=== PATIENT | female | born 1950 | race Caucasian/White ===

== ENCOUNTER 2025-04-18 10:00 | Outpatient (RCR) | payer MEDICARE, OTHER, SELFPAY | END 2025-04-26 16:16 | disposition home or self-care (01) | PROVIDERS: PCP Family Medicine; Visit Provider Family Medicine | DX: M25.551 Pain in right hip (principal); M25.561 Pain in right knee; M25.562 Pain in left knee; Z51.89 Encounter for other specified aftercare | CPT/HCPCS: 97110; 97112; 97161 ==

== ENCOUNTER 2025-09-17 09:40 | Emergency (ER) | payer MEDICARE, OTHER, SELFPAY ==
--- OUTSIDE RECORDS SUMMARY | 2025-09-17 09:42 | XMS_ITS | Clinical Summary ---
Author Organization [facility] Address [address] [place] [id number] Care Team Providers Care Commanding Officer Traffic Division Name Role Phone Last Garcia MD Unavailable Kisha Wynn MD Primary Care Provider Allergies Active Allergy Reactions Criticality Noted Date Comments Amoxicillin-Pot Clavulanate Diarrhea 07/21/20 12 Meperidine Hives 01/19/2007 Esomeprazole GI Upset 01/19/2007 Sulfa (Sulfonamide Antibiotics) Rash 12/26 Medications VITAMIN D 2,000 UNIT CAP once daily 0 07/13/20 09 Active polyethylene glycoL (MIRALAX) 17 gram/dose powder Take 17 g by mouth. 0 08/20/20 18 Active docusate (STOOL SOFTENER) 100 mg capsule Take 100 mg by mouth 2 times daily if needed for Constipation. 0 08/20/20 18 Active calcium carbonate CHEWABLE (TUMS E-X) 750 mg chewable tablet Take 1 tablet by mouth 3 times daily with meals. 0 08/24/20 20 Active hydrOXYchloroQUINE (PLAQUENIL) 200 mg tablet Take 2 Tablets (400 mg) by mouth once daily. Take one tablet once daily 0 09/02/20 22 Active triamcinolone 0.1 % creamIndications:H and dermatitis Apply topically to affected area(s) two times daily. 28.4 g 02/26/20 25 Active Additional Information Patient not taking.Reported on 09/09/2025 fluticasone (50 mcg per actuation) nasal solution (FLONASE)Indicatio ns:Eustachian tube dysfunction, left INSTILL 2 SPRAYS INTO BOTH NOSTRILS ONCE DAILY 16 g 07/05/20 25 Active pantoprazole (PROTONIX) 40 mg delayed-release tabletIndications: Lyn's esophagus without dysplasia Take 1 Tablet (40 mg) by mouth once daily before a meal. 93 Tablet 3 09/09/20 25 Active famotidine (PEPCID) 20 mg tabletIndications: Lyn's esophagus without dysplasia Take 1 Tablet (20 mg) by mouth once daily if needed for GI Upset or Heartburn. 93 Tablet 3 09/09/20 25 Active ezetimibe (ZETIA) 10 mg tabletIndications: Mixed hyperlipidemia Take 1 Tablet (10 mg) by mouth once daily. 93 Tablet 3 09/09/20 25 Active Carboxymethylcellu lose Sodium (THERA TEARS) 0.25 % drop Place into the eye(s). 1 Bottle 0 03/17/20 14 025 Discontin ued(*Med complete/ Regimen complete/ Level of care change) famotidine (PEPCID) 20 mg tabletIndications: Lyn's esophagus without dysplasia Take 1 Tablet (20 mg) by mouth once daily if needed for GI Upset or Heartburn. 100 Tablet 3 09/06/20 24 025 Discontin ued(Reord er (E-cancel not sent)) ezetimibe (ZETIA) 10 mg tabletIndications: Mixed hyperlipidemia Take 1 Tablet (10 mg) by mouth once daily. 100 Tablet 3 09/06/20 24 025 Discontin ued(Reord er (E-cancel not sent)) albuterol HFA (PRO-AIR; VENTOLIN; PROVENTIL) 90 mcg/actuation inhalerIndications :Chronic cough Inhale 1-2 Puffs by mouth every 4 hours if needed for Shortness Of Breath or Wheezing. 1 Each 3 09/06/20 24 025 Discontin ued(*Med complete/ Regimen complete/ Level of care change) pantoprazole (PROTONIX) 40 mg delayed-release tabletIndications: Lyn's esophagus without dysplasia Take 1 Tablet (40 mg) by mouth once daily before a meal. 90 Tablet 2 12/03/19 25 025 Discontin ued(Reord er (E-cancel not sent)) Active Problems Problem Noted Date Diagnosed Date Chronic constipation 09/27/2019 Osteopenia 08/18/2017 History of impaired fasting glucose 08/18/2017 Overview (08/18/2017): 3484-0187 Normal sugars for the last few years Diverticulitis 03/20/2014 Overview (03/20/2014): 09/2012 - ER with Abdominal pain, Slightly elevated WBC, CT sugestive of diverticulitis - Improved with Cipro and flagyl 07/2013 - Nausea, bloody diarrhea - treated empirically for diverticulitis over the phone 12/2013 - seen in clinic with mild LLQ tenderness, treated for diverticulitis based on labs, no CT or CBC. C diff colitis 1 month later Diverticulosis of colon (without mention of hemo rrhage) 12/24/2012 Overview (12/26/2022): Colonoscopy 11/2012 diverticulosis repeat in 10 years Incolonoscopy 12/2022 CT colonography shows tortuous colon with diverticuli, repeat CT scan every 5 years Hypertrophy of breast 12/23/2011 Irritable bowel syndrome 07/18/2011 Sjogren's syndrome 09/27/2010 Healthcare maintenance 07/11/2008 Overview (08/14/2015): LMP menopause Last Pap 2013 Result WNL Last Mammo yearky Last Colonoscopy 11/2012 - follow up in 10 years Last DEXA 2011 Last Td 04/15/08 Lyn's esophagus 05/13/2008 Overview (08/23/2022): EGD 07/2011 normal , repeat EGD in 5 years EGD 09/2013 normal, no follow up EGD needed give negative biopsies and normal esophageal appearance, Continue proton pump inhibitor or H2 eric as needed for gastroesophogeal reflux disease. No obvious Lyn's tissue EGD 07/2022 reactive gastropathy, no Lyn's esophagus, no follow-up EGD needed Mixed hyperlipidemia 05/13/2008 Adjustment disorder with depressed mood 11/12/19 08 Resolved Problems Problem Noted Date Diagnosed Date Resolved Date Prediabetes 07/13/2009 08/18/2017 Unspecified hypothyroidism 05/13/2008 1 Impaired fasting glucose 05/13/2008 Encounters Date Type Department Care Team Description 09/13/2025 Refill [facility] [address] [facility] [place] [address] Kisha Wynn MD Refill Request (Pantoprazole) 09/09/2025 10:20 AM SUPERVISOR FELLING [employer]CK[employer] Office Visit [facility] [address] [place] [address] Kisha Wynn MD Medicare ANNUAL (subsequent) Visit (annual) 09/09/2025 Travel 09/06/2025 Travel 09/02/2025 9:20 AM [employer]PERVISOR [employer] Ancillary Procedure [facility] [address] [place] [address] 09/02/2025 Travel 08/28/2025 Travel 08/01/2025 Refill [facility] [address] [place] [address] Kisha Wynn MD Refill Request (Pantoprazole) 07/28/2025 Refill [facility] [address] [place] [address] Kisha Wynn MD Refill Request (Pantoprazole) 06/30/2025 Refill [facility] [address] [place] [address] Kisha Wynn MD Refill Request (Fluticasone (50 Mcg Per Actuation) Nasal) from Last 3 Months Immunizations Immunization Administration Dates Next Due AMB INFLUENZA IIV3 (AGE 65+ YRS) PF (Flu Clinic Only) 07/30/2017 AMB Influenza, IIV3 (Age >=3 years)(Flu Clinic Only) 07/15/2013 AMB Influenza, IIV4 PF (=>6 mos Flulaval,Fluzone Fluarix)(Flu Clinic Only) 08/01/2014 Amb Influenza, Inactivated A IIV4 (Age 65+ Years) Preserv Free 07/20/2020 COVID-19 VACCINE SPIKEVAX (M ODERNA 50MCG/0.5ML) 12YO+ PFS 08/14/2023 COVID-19 vaccine (Moderna 100mcg/0.5mL) PF, MDV 02/12/2022 HepA-HepB (Twinrix) 01/16/2007, 6,07/21/2006,08/24 Influenza A (H1N1), Inactiva brittny (Age >=3 Years) 10/17/2009 Influenza, High-dose Inactivated 025,07/13/2024,08/15/2016,08/14 Influenza, IIV3 (Age >=3 years) 07/21/20 12,07/18/2011,07/17/2010,07/13,08/23/2008,09/01/2007 Influenza, IIV4 10/17/2009 Influenza, Inactivated AIIV4 (Age 65+ Years) Preserv Free 08/05/2023,07/22/2022,08/29/2021 Influenza, Inactivated IIV3 (Age 65+ Years) Preserv Free 08/23/2019,08/20/2018 Pneumococcal Poly,23-Valent (Pneumovax) 08/15/2016 Pneumococcal conj 13-Valent (Prevnar 13) 08/14/2015 RSV, Recombinant ADJ Reconst ituted (Arexvy 120MCG/0.5mL) 11/11/2023 Td (Age >=7 Years) 10/27/1997 Tdap 05/22/2018,04/15/2008 Zoster (Shingrix-RZV, recombinant) 06/02/2019, Zoster (Zostavax-ZVL, live) 10/02/2010 Family History Medical History Relation Name Comments Heart Disease Father [place] age 59 Heart Disease Mother aortic aneurys m Cancer-breast No Family History Cancer-ovarian No Family History Relation Name Status Comments Father Mother Social History Tobacco Use Types Packs/Day Years Used Date Smoking Tobacco: Former Cigarettes Q uit: 09/01/1984 Smokeless Tobacco: Never Tobacco Cessation:Counseling Given: Yes Comments:quit x23 yrs, 09/02 Alcohol Use Standard Drinks/Week Comments Yes 0 (1 standard drink = 0.6 oz pur e alcohol) 3-4 times a week PHQ-2 Answer Date Recorded PHQ-2 TOTAL SCORE 0 09/09/2025 Social Connections Answer Date Recorded Do you often feel lonely or isolated from those around you? 0 09/09/2025 Alcohol Use Answer Date Recorded How often do you have a drink containing alcohol ? 3 09/09/2025 How many drinks containing a lcohol do you have on a typical day when you are drinking? 0 09/09/2025 How often do you have five or more drinks on one occasion? 0 09/09/2025 Financial Resource Strain Answer Date R ecorded Difficulty of Paying Living Expenses 3 09/09/2025 Difficulty of Paying Living Expenses Not on file 09/09/2025 Food Insecurity Answer Date Recorded Do you worry your food will run out before you are able to buy more? 1 09/09/2025 Transportation Needs Answer Date Record ed Does lack of transportation keep you from medica l appointments? 1 09/09/2025 Does lack of transportation keep you from work, meetings or getting things that you need? 1 09/09/2025 Housing Stability Answer Date Recorded What is your housing situation today? 1 09/09/2025 Utilities Answer Date Recorded Do you have trouble paying f or utilities (for example, heat, electricity, water, phone)? 1 09/09/2025 Comments No Sex and Gender Information Value Date Recorded Sex Assigned at Not on file Legal Sex Female 6:18 AM SUPERVIS[employer] Gender Identity Not on file Sexual Orientation Not on file Obstetrics History Para Term AB IAB SAB Ectopic Multiple Livin g Live Births 2 2 2 0 0 0 0 0 2 2 Date Outcome GA Total Labor Labor/2nd/3rd Weight Sex Type Anes PTL Nereyda A1 A5 Name Clin Term Living Term Living Last Filed Vital Signs Vital Sign Reading Time Taken Comments Blood Pressure 124/72 09/09/2025 10:21 AM SUPERVIS[employer] Pulse 84 09/09/2025 10:21 AM SUPERVISOR [employer]ING [employer] Temperature 36.6 C (97.9 F) 09/09/2025 10:21 AM SUPERVISOR [employer]ING Respiratory Rate 14 08/21/2023 1:19 PM CDT Oxygen Saturation 99% 09/09/2025 10:21 AM SUPERVISOR [employer]ING [employer]ING Inhaled Oxygen Concentration - - Weight 70 kg (154 lb 6.4 oz) 09/09/2025 10:21 AM SUPERVISOR [employer] Height 152.4 cm (5') 09/09/2025 10:21 AM SUPERVISOR [employer] Body Mass Index 30.15 09/09/2025 10:21 AM SUPERVISOR [employer] Plan of Treatment Health Maintenance Due Date Last Done Comments BMI (ht and wt on same day) for age 18+ 09/09/2026 09/09/2025, 09/06/2024, 09/03/2023, Additional history exists Depression screening for age 12+ 09/09/2026 09/09/2025, 09/06/2024, 09/03/2023, Additional history exists Medicare Wellness for age 65+ 09/10/2026, 09/06/2024, 09/03/2023, Additional history exists CT Colonography for age 45-75 12/26/2027 12/25/2022 Tetanus booster 05/22/2028 05/22/2018, 03/28, 10/27/1997 Lipids for age 45-75 09/09/2030 09/09/2025, 09/06/2024, 09/03/2023, Additional history exists Hepatitis B series for 19+ Completed 01/16, 08/18/2006, 07/21/2006, Additional history exists Pneumococcal series for age 50+ Completed 6, 08/14/2015 Hepatitis C screening for ag e 18-79 Completed 08/18/2017 Zoster (shingles) series for age 50+ Completed 06/02/2019, 02/02/2019, 10/02/2010 DEXA/DXA scan for age 65+ Completed 2021, 09/13/2019, 08/22/2015, Additional history exists RSV vaccine for adults or Completed 11/11/2023 Influenza Vaccine Completed 08/10/2025, , 08/05/2023, Additional history exists Procedures Procedure Name Priority Date/Time Associated Diagnosis Comments GLUCOSE, RANDOM Routine 09/09/2025 11:38 AM SUPERVISOR [employer] Diabetes mellitus screening LIPID PANEL W REFLEX MEASURED LDL Routine 09/09/2025 11:38 AM SUPERVISOR [employer] Mixed hyperlipidemia XR MAMMO COLTON BILAT SCREEN Routine 09/02/2025 9:30 AM SUPERVISOR [employer] Breast cancer screening by mammogram CT ABDOMEN PELVIS COLONOGRAPHY DIAGNOSTIC W Today 12/25/2022 1:28 PM [employer]OR [employer] Screening for colon cancer Procedure and treatment not carried out for other reasons XR DXA BONE DENSITY 2 SITES AXIAL Routine 09/30/2022 10:49 AM SUPERVISOR [employer]ING [employer]ING Osteopenia, unspecified location Other specified disorders of bone density and structure, multiple sites ANTI HCV Routine 08/18/2017 10:53 AM CDT Need for hepatitis C screening test from Last 3 Months or Most Recently Relevant to Health Maintenance Results * (ABNORMAL) LIPID PANEL W REFLEX MEASURED LDL (09/09/2025 11:38 AM SUPERVISOR [employer]ING [employer]ING) CHOLESTEROL, TOTAL 215(H) <200 mg/dL 09/10/2025 4:55 AM SUPERVISOR FELLING [employer]CKING [facility] TRIGLYCERIDES 60 <150 mg/dL 09/10/2025 4:55 AM SUPERVISOR FELLING [employer]ING [facility] HDL CHOLESTEROL 85 > OR = 50 mg/dL 09/10/2025 4:55 AM SUPERVISOR FELLING [employer]ING [facility] NON HDL CHOLESTEROL 130(H) <130 mg/dL (calc) 09/10/2025 4:55 AM SUPERVISOR FELLING [employer]ING [facility] Comment: For patients with diabetes plus 1 major ASCVD risk factor, treating to a non-HDL-C goal of <100 mg/dL (LDL-C of <70 mg/dL) is considered a therapeutic option. CHOL/HDLC RATIO 2.5 <5.0 (calc) 09/10/2025 4:55 AM SUPERVISOR FELLING [employer]CKING [facility] LDL-CHOLESTEROL 115(H) mg/dL (calc) 09/10/2025 4:55 AM SUPERVISOR FELLING [employer]ING [facility] Comment: Reference range: <100 Desirable range <100 mg/dL for primary prevention; <70 mg/dL for patients with CHD or diabetic patients with > or = 2 CHD risk factors. LDL-C is now calculated using the Harpreet calculation, which is a validated novel method providing better accuracy than the Friedewald equation in the estimation of LDL-C. Adonay EASLEY et al. GERONIMO. 2013;310(19): 7864-6016 (http://education.gDecide.[employer] Ultrasound/faq/TDI701) Blood BLOOD SPECIMEN / Unknown [facility] / Unknown 09/09/2025 11:38 AM SUPERVISOR FELLING [employer]CKING 09/09/2025 11:38 AM SUPERVISOR FELLING [employer]ING us Kisha Wynn MD CHEMISTRY Final Resul t Performing Organization Address [facility]/ZIP Co de Phone Number [employer] [address] [address], [place] [phone] * GLUCOSE, RANDOM (09/09/2025 11:38 AM SUPERVISOR FELLING BUCKING) GLUCOSE, RANDOM 92 <140 mg/dL 09/10/2025 4:55 AM SUPERVISOR FELLING [employer]CKING [facility] Blood BLOOD SPECIMEN / Unknown [facility] / Unknown 09/09/2025 11:38 AM SUPERVISOR FELLING [employer]ING 09/09/2025 11:38 AM SUPERVISOR FELLING BUCKING us Kisha Wynn MD CHEMISTRY Final Resul t Performing Organization Address [facility] Co de Phone Number [employer] [address] [address], [place] [phone] * XR MAMMO COLTON BILAT SCREEN (09/02/2025 9:30 AM SUPERVISOR FELLING [employer]ING) Anatomical Region Laterality Modality BREASTS, Breast Left, Breast Right Bilateral Mammography Impressions 09/02/2025 1:23 PM SUPERVISOR [employer]ING There is no radiographic evidence for malignancy. Recommend annual mammograms. MAMMOGRAM ASSESSMENT: ACR 1 Negative PATIENTS: You will also receive a letter with your examination results in an easy to read format. If you have questions about your results, please contact your referring provider. Narrative 09/02/2025 1:23 PM SUPERVISOR [employer]ING For Patients: As a result of the 21st Century Cures Act, medical imaging exams and procedure reports are released immediately into your electronic medical record. You may view this report before your referring provider. If you have questions, please contact your health care provider. XR MAMMO COLTON BILAT SCREEN [[id number]] CLINICAL HISTORY: This is an asymptomatic 75 y.o. patient. INDICATION FOR EXAM: Mammogram Screening. TECHNIQUE: CC and MLO views were obtained. This study was evaluated with the assistance of Computer-Aided Detection. Breast Tomosynthesis was used in interpretation. COMPARISON FILM: Yes 09/02/24 [facility] 09/01/23 [facility] FINDINGS: There are scattered areas of fibroglandular density. There are no dominant masses, suspicious micro calcifications or areas of architectural distortion. us Kisha Wynn MD MAMMO Final Resul t * CT ABDOMEN PELVIS COLONOGRAPHY DIAGNOSTIC W (12/25/2022 1:28 PM SUPERVISOR [employer]ING) Anatomical Region Laterality Modality Abdomen, Pelvis Computed Tomogra phy 12/25/2022 1:28 PM SUPER[employer]OR [employer]ING Impressions 12/26/2022 8:24 AM SUPERVISOR FELLING [employer]ING IMPRESSION: 1. Extremely tortuous and redundant colon. 2. Moderate diverticulosis. 3. Colon otherwise negative. 4. No significant extracolonic findings. Narrative 12/26/2022 8:24 AM SUPERVISOR [employer]LLING [employer]CKING EXAM: CT COLONOGRAPHY LOCATION: [facility] DATE/TIME: 12/25/2022 1:28 PM INDICATION: Incomplete colonoscopy due to tortuous redundant colon. COMPARISON: Colonoscopy report from earlier today. TECHNIQUE: Prone and supine CT abdomen and pelvis with air insufflation per rectum, with image postprocessing. Oral contrast. Dose reduction techniques were used. CONTRAST: 30 ml GASTROGRAFIN Discarded: 0 ml GASTROGRAFIN FINDINGS: COLON: Extremely tortuous and redundant colon. Moderate diverticulosis. Colon otherwise negative. No colonic perforation. All segments well seen. C Score: C1 Note: CT colonography is not intended for the detection of diminutive polyps (i.e. polyps less than or equal to 5mm), the presence of which will not likely microsoft exchange architect of the patient. ADDITIONAL FINDINGS: No significant finding in the liver, spleen, pancreas, adrenal glands, and kidneys. Normal caliber abdominal aorta. No pelvic masses. E Score: E1, Normal examination or anatomic variant Procedure Note Brown Starks MD - 12/26/2022 EXAM: CT COLONOGRAPHY LOCATION: [facility] DATE/TIME: 12/25/2022 1:28 PM INDICATION: Incomplete colonoscopy due to tortuous redundant colon. COMPARISON: Colonoscopy report from earlier today. TECHNIQUE: Prone and supine CT abdomen and pelvis with air insufflation per rectum, with image postprocessing. Oral contrast. Dose reduction techniques were used. CONTRAST: 30 ml GASTROGRAFIN Discarded: 0 ml GASTROGRAFIN FINDINGS: COLON: Extremely tortuous and redundant colon. Moderate diverticulosis. Colon otherwise negative. No colonic perforation. All segments well seen. C Score: C1 Note: CT colonography is not intended for the detection of diminutive polyps (i.e. polyps less than or equal to 5mm), the presence of which will not likely microsoft exchange architect of the patient. ADDITIONAL FINDINGS: No significant finding in the liver, spleen, pancreas, adrenal glands, and kidneys. Normal caliber abdominal aorta. No pelvic masses. E Score: E1, Normal examination or anatomic variant IMPRESSION: IMPRESSION: 1. Extremely tortuous and redundant colon. 2. Moderate diverticulosis. 3. Colon otherwise negative. 4. No significant extracolonic findings. us Adonay Kaur MD CT Final Res ult * (ABNORMAL) XR DXA BONE DENSITY 2 SITES AXIAL (09/30/2022 10:49 AM SUPERVISOR [employer]LLING [employer]CKING) Anatomical Region Laterality Modality Spine, HIPS, HIPL, HIPR Other Impressions 10/01/2022 12:50 PM SUPERVISOR [employer]ING Osteopenia. RECOMMENDATIONS: The National Osteoporosis Foundation recommends pharmacologic treatment for patients with T-scores of -2.5 or less, patients with prior history of fragility fractures, or patients with 10-year probability of greater than 3% at hips or greater than 20% of suffering major osteoporotic fractures. Recommend continued optimization of calcium and vitamin D intake through dietary means and/or supplementation and regular exercise. Repeat scan recommended in 3-5 years. Mary Alvarenga PA-C [facility] 10/01/2022 Narrative 10/01/2022 12:50 PM SUPERVISOR [employer]ING [employer]CKING For Patients: Results are automatically released to your [employer] ([employer]) account once available, in compliance with federal regulations. This means that you may see your results before your provider has had a chance to review them. Please allow 2-3 business days for your provider to comment on the results. XR DXA Bone Mineral Density (BMD) EXAM LOCATION: [address] [id number] PATIENT NAME: Leandra Gudnerson DATE OF : 1950 EXAM DATE: 09/30/2022 REQUESTING PROVIDER: Mara Ervin MD GENDER AT : female HEIGHT: 5' 0.43 (09/02/2022) WEIGHT: 155 lb 4.8 oz (09/02/2022) MENOPAUSAL STATUS: Postmenopausal RACE/ETHNICITY: White RISK FACTORS: Height Loss (2 inches or more), Smoking (prior) and White Race CURRENT MEDICATION FOR BONE LOSS: NONE INDICATION: Follow-up of existing osteopenia COMPARISON DATE(S): 2018 DXA scans are compared to prior studies for a patient only when the two (or more) studies were performed on the same scanner. It is not possible to compare data generated on one scanner to data from another because there are not standards in DXA equipment. This applies even if the two scanners are made by the same final inspector movement assembly. PROCEDURE: Dual-energy x-ray absorptiometry performed with routine technique. Reporting is completed in the form of a T-score. The T-score represents the standard deviation from peak bone mass based on young healthy adult. A Z-score is used for diagnosis in premenopausal women, and for men under the age of 50. FINDINGS: RESULT LUMBAR SPINE L1 - L4 BMD: 1.040 g/cm2 T-Score: - 1.2 Z-Score: + 0.4 Change from prior in 2019: Decrease 6.3%. RESULTS FEMUR Left femoral neck BMD: 0.791 g/cm2 T-Score: - 1.8 Z-Score: - 0.1 Change from prior in 2019: Decrease 5.5%. Right femoral neck BMD: 0.764 g/cm2 T-Score: - 2.0 Z-Score: - 0.3 Change from prior in 2019: Decrease 5.3%. Left hip BMD: 0.898 g/cm2 T-Score: - 0.9 Z-Score: + 0.6 Change from prior in 2019: Decrease 4.7%. Right hip BMD: 0.830 g/cm2 T-Score: - 1.4 Z-Score: + 0.0 Change from prior in 2019: Decrease 7.1%. WHO criteria: Normal: T-score at or above -1 SD Osteopenia: T-score between -1.1 and -2.4 SD Osteoporosis: T-score at or below -2.5 SD FRAX RISK CALCULATION (USED FOR OSTEOPENIA ONLY): 10-year probability of major osteoporotic fracture: 12.1%. 10-year probability of hip fracture: 2.6%. Mara Ervin MD DEXA Final Result * ANTI HCV [[id number]] (08/18/2017 10:53 AM CDT) HEPATITIS C ANTIBODY Non-Reacti ve Non-Reacti ve 08/18/2017 5:04 PM CDT [facility] Blood BLOOD SPECIMEN / Unknown Venipuncture / Unknown 08/18/2017 10:53 AM CDT 08/18/2017 10:54 AM CDT Narrative [facility] - 08/18/2017 5:04 PM CDT Antibodies to HCV not detected; does not exclude the possibility of exposure to HCV. Feroz Petersen MD SEND OUTS Final Result [facility] [address] [place] [address], [place] from Last 3 Months or Most Recently Relevant to Health Maintenance Insurance [place] [address] Advance Directives Documents on File Type Date Recorded Patient Mill Dresser Expl anation Healthcare Directive 06/04/2022 7:09 AM A [facility] CARE DIRECTIVE * Full Code (Latest Code Status on File) Date Activated Date Inactivated Comments 12/23/2011 11:50 AM 12/24/2011 4:15 PM * Full Code Date Activated Date Inactivated Comments 12/23/2011 6:04 AM 12/23/2011 11:50 AM Care Teams Commanding Officer Traffic Division Relationship Specialty Start Date End Date Kisha Wynn MD [address] [place] [address] PCP - General Family Practice 04/05/25 Last Garcia MD Plastic Surgery Plastic and Reconstructive Surgery 07/18/11
[2025-09-17 09:45] VITALS: BP 145/83; PULSE 97; RESP 18; TEMP 36.6; O2SAT 100
--- NOTE | 2025-09-17 09:45 | CRLHL7_ITS ---
For Patients: As a result of the Century Cures Act, medical imaging exams and procedure reports are released immediately into your electronic medical record. You may view this report before your referring provider. If you have questions, please contact your health care provider. INDICATION: Dizziness. TECHNIQUE: Noncontrast CT of the head with multiplanar reconstruction utilizing bone and soft tissue algorithms. COMPARISON: None available. FINDINGS: No acute intracranial hemorrhage. No CT evidence of cortical infarct. Mild enlargement of the ventricles out of proportion to the sulci with prominence of the sylvian fissures and questionable crowding of the sulci at the vertex. No abnormal extra-axial fluid collection. Intact calvarium. Symmetric globes. The imaged paranasal sinuses and mastoid air cells are clear. IMPRESSION: 1. No acute intracranial hemorrhage or mass effect. 2. Mild enlargement the ventricles out of proportion to the sulci, with morphology that can be seen in the setting normal pressure hydrocephalus. Please note that all CT scans at this facility use dose modulation, iterative reconstruction, and/or weight-based dosing when appropriate to reduce radiation dose to as low as reasonably achievable. Dictated by Dwain Rios MD @ 09/17/2025 11:23:31 AM (Electronically Signed)
--- NOTE | 2025-09-17 10:07 | ED_ITS ---
HPI - General Adult General Chief complaint: Unspecified Complaint, Adult Stated complaint: Dizzy and feeling faint Time Seen by Provider: 09/17/25 09:44 History of Present Illness HPI narrative: Patient is a 75-year-old female who last night and today has had several episodes of feeling faint. She does not really describe vertigo. She feels like she ?might pass out?. She has no chest pain, breathing problem, headache. No nuchal rigidity. No focal neurologic deficit. The patient has not been ill with any fever type illness. She has had no dysuria or frequency no bowel or bladder changes. The patient does report a good amount of stress lately he states ?I carry a lot of things '. The patient denies chest pain or breathing problem as mention. She was a able to ambulate into the ER and actually felt better when she arrived here. Patient takes cholesterol medication, Celebrex, pantoprazole. She has been generally healthy, no diabetes, no heart disease, no cancers. No strokes. Related Data Home Medications ?Medication ?Instructions ?Recorded ?Confirmed celecoxib 200 mg capsule 200 mg PO DAILY PRN joint pa in 09/17/25 09/17/25 ezetimibe 10 mg tablet 10 mg PO DAILY 09/17/2508/28 famotidine 20 mg tablet 20 mg PO DAILY PRN heartburn 09/17/25 09/17/25 hydroxychloroquine 200 mg tablet mg PO 09/17/25 pantoprazole 40 mg tablet,delayed 40 mg PO DAILY 09/1709/17/25 release Allergies Allergy/AdvReac Type Severity Reaction Status Date / Time esomeprazole (From Nexium) Allergy Severe Verified 09/17/25 09:53 meperidine (From Demerol) Allergy Severe Verified 09/17/25 09:53 Sulfa (Sulfonamide Allergy Severe Verified 09/17/25 09:53 Antibiotics) Review of Systems Status of ROS: Reports: 6 or more systems reviewed and unremarkable except as noted in History and below Exam Narrative: Exam Narrative: Objective: Patient's vital signs are within normal limits Alert orient x3 no distress No cyanosis HEENT shows normal facial symmetry, tongue protrudes midline, neck trunk movements intact, pupils are equal reactive light Patient is neck is supple Chest clear Heart rhythm regular 2/6 systolic murmur, no ectopy noted Abdomen benign soft nontender Extremities are no edema neurologic nonfocal upper extremities normal strength sensation in the upper lower extremities Const: Vital Signs, click to edit/add: Vital Signs - 24 hr 09/17/25 09:45 09/17/25 10:15 Temperature 98 F Pulse Rate [Right Pulse Oximeter] 97 Respiratory Rate 18 Blood Pressure [Le ft Upper Arm] 145/83 H Pulse Oximetry 100 99 Oxygen Delivery Me thod Room Air Course Vital Signs Vital signs: Initial Vital Signs Temperature 98 F 09/17/25 09:45 Temperature Source Temporal Artery Scan 09/17/25 09:45 Pulse Rate 97 09/17/25 09:45 Pulse Rhythm Regular 09/17/25 09:45 Pulse Strength 3+ Normal 09/17/25 09:45 Respiratory Rate 18 09/17/25 09:45 Blood Pressure 145/83 H 09/17/25 09:45 Blood Pressure Mean 103 09/17/25 09:45 Blood Pressure Position Sitting 09/17/25 09:45 Pulse Oximetry 100 09/17/25 09:45 Oxygen Delivery Method Room Air 09/17/25 09:45 Vital Signs Temperature 98 F 09/17/25 09:45 Pulse Rate 97 09/17/25 09:45 Respiratory Rate 18 09/17/25 09:45 Blood Pressure 145/83 H 09/17/25 09:45 Pulse Oximetry 100 09/17/25 09:45 Oxygen Delivery Method Room Air 09/17/25 09:45 Temperature 98 F 09/17/25 09:45 Pulse Rate 97 09/17/25 09:45 Respiratory Rate 18 09/17/25 09:45 Blood Pressure 145/83 H 09/17/25 09:45 Pulse Oximetry 99 09/17/25 10:15 Oxygen Delivery Method Room Air 09/17/25 09:45 Medications Administered Medications: Discontinued Medications Generic Name Dose Route Start Last Admin Trade Name Freq PRN Reason Stop Dose Admin Sodium Chloride 500 mls @ 500 mls/hr 09/17/25 09:44 09/17/25 11:24 0.9 % Sodium Chloride 500 Ml IV 09/17/25 10:43 Infused .Q1H ONE Infusion Medical Decision Making MDM Narrative Medical decision making narrative: 75-year-old female with the history of feeling faint several times during the night and this morning. Feels reassured by being in the ER. 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 Will check labs. Will get a head CT, will give 500 mL normal saline bolus, will check COVID/influenza/RSV. Will check a urinalysis. Disposition pending findings above. Addendum 11:30 a.m.: Patient's EKG shows sinus rhythm anteroseptal infarct limited R-wave progression anteriorly possible mild right bundle branch block, no obvious acute ischemic changes. CT scan of the head shows some ventricular size enlargement, but patient has no gait or neural status changes that would be consistent with normal pressure hydrocephalus. She can follow up with regular doctor did discuss this with her neurology referral be reasonable. The patient's head and neck CTA are negative. I think at this point given the absence of findings in her lab or imaging it be reasonable to try a ZIO patch to make sure she is not have any arrhythmia, she has not had any here in the ER. Recommend hydration, light activity, observation, no driving until sees primary care in the next few days, may consider neurology consult regarding the enlarged ventricular finding on CT of the head. With can return if problems or concerns. Does not appear seizure-like, certainly could be stress induced or panic type reaction. Would recommend observation as above. Recheck with primary care in the next 3-5 days. Return to ED sooner problems or concerns. Light activity as mention. Lab Data Labs: Lab Results 09/17/25 09/17/25 Range/Units 10:12 10:20 WBC 7.12 (4.50-11.00) K/uL RBC 4.54 (4.00-5.20) m/uL Hgb 13.8 (12.0-16.0) gm/dL Hct 41.0 (33.0-51.0) % MCV 90 (80-100) fL MCH 30 (26-34) pg MCHC 34 (32-36) gm/dL RDW Coeff of [place] 13.1 (11.5-15.5) % Plt Count 249 (140-440) K/uL Neut % (Auto) 78.1 H (42.0-72.0) % Lymph % (Auto) 13.5 L (20-44) % [place] % (Auto) 7.4 (0.0-11.0) % Eos % (Auto) 0.1 (0.0-7.0) % Baso % (Auto) 0.6 (0.0-3.0) % Neut # (Auto) 5.60 (1.7-7.0) K/uL Lymph # (Auto) 1.00 (0.90-2.90) K/uL [place] # (Auto) 0.50 (0.00-0.90) K/UL Eos # (Auto) 0.01 (0.00-0.50) K/uL Baso # (Auto) 0.04 (0.00-0.30) K/uL Abs Immat Gran (auto) 0.02 (0.00-0.30) K/uL Imm/Tot Granulo (auto) 0.3 % INR 0.97 (0.91-1.10) Sodium 133 L (135-149) mmol/L Potassium 4.4 (3.6-5.1) mmol/L Chloride 95 L (96-114) mmol/L Carbon Dioxide 29 (20-32) mmol/L Anion Gap 9 (7-15) mEq/L BUN 11 (7-30) mg/dL Creatinine 0.6 (0.5-1.5) mg/dL Estimated GFR 94 ml/min Glucose 124 H (60-115) mg/dL Lactate 1.2 (0.5-1.9) mmol/L Calcium 9.3 (8.4-10.6) mg/dL Total Bilirubin 0.7 (0.1-1.5) mg/dL Direct Bilirubin 0.1 (0.0-0.5) mg/dL AST 25 (12-35) U/L ALT 17 (4-35) U/L Alkaline Phosphatase 76 (40-150) U/L C-Reactive Protein < 0.5 L (0.5-1.0) mg/dL NT-Pro-B Natriuret Pep 55 (See Note) pg/mL Total Protein 7.4 (6.0-8.3) g/dL Albumin 4.3 (3.3-5.0) g/dL Ethyl Alcohol < 0.01 (0.01-0.03) % SARS-CoV-2 (PCR) Negative SARS-CoV-2 (Negative) Influenza Type A (PCR) Negative PCR FLU A (Negative) Influenza Type B (PCR) Negative PCR FLU B (Negative) RSV (PCR) Negative PCR RSV (Negative) POC Troponin I 0.01 (0.01-0.04) ng/ml Discharge Plan Discharge Clinical Impression: Episodic lightheadedness Additional Instructions: Recommend light activity, no ladders, no driving until recheck, consider Neurology consultation as well. ZIO patch placed to make sure there is no cardiac rhythm issues. Follow-up with your regular doctor next 2 3 days, return to ED sooner problems or concerns. Good fluid hydration Activity Level: Light activity Activity Detail: No driving until follow-up with primary care Discharge Diet: Regular Prescriptions: No Action celecoxib 200 mg capsule 200 mg PO DAILY PRN (Reason: joint pain) famotidine 20 mg tablet 20 mg PO DAILY PRN (Reason: heartburn) pantoprazole 40 mg tablet,delayed release (DR/EC) 40 mg PO DAILY hydroxychloroquine 200 mg tablet PO ezetimibe 10 mg tablet 10 mg PO DAILY Follow Up/Referrals: Mara Ervin MD [Referring, Family Practice]
[2025-09-17 10:15] VITALS: O2SAT 99
[2025-09-17] MEDS: 0.9 % SODIUM CHLORIDE 500 ML 500 ML IV (10:22)
--- NOTE | 2025-09-17 10:33 | CT_ITS ---
Patient: LAURYN MICHAEL Facility:?[facility] Patient ID:?[id number] Site Patient ID:?[id number]. Site :?[id number] Study:?CT-Neck Angio Angio W/ 95CC ISOVUE 370-09/17/2025 10:52:15 AM Ordering Physician:Vick Maldonado Final Report: DATE: 09/17/2025 CLINICAL HISTORY: Patient with lightheadedness. TECHNIQUE: Standard helical CT image acquisition through the head and neck was performed after intravenous contrast bolus enhancement. 2D and 3D MIP images for post- processing were performed and interpreted on an independent workstation and 3D images were permanently archived. COMPARISON: CT same day. FINDINGS: The origins of the great vessels from the aortic arch are patent. The origin of the right vertebral artery is patent. The origin of the left vertebral artery is patent. The common carotid arteries are patent There is plaque without stenosis at the origin of the right internal carotid artery. There is without stenosis at the origin of the left internal carotid artery. The rest of the cervical segments of the internal carotid arteries are patent up to their intracranial segments. The intracranial segments of the internal carotid arteries are patent. The vertebral arteries are codominant. The cervical segments of the vertebral arteries are patent. The intracranial segments of the vertebral arteries are patent. The middle cerebral arteries are normal without aneurysm or proximal occlusion identified. The anterior cerebral arteries are normal without aneurysm or proximal occlusion identified. The anterior communicating artery is well visualized and appears normal. The basilar artery is normal without aneurysm or occlusion. The posterior cerebral arteries are normal without aneurysm or proximal occlusion. There is normal opacification of major intracranial venous structures. The visualized lung apices are unremarkable The thyroid gland is unremarkable. The soft tissues of the neck are unremarkable. There are degenerative changes in the cervical spine. IMPRESSION: Patent cervical and proximal intracranial vasculature. Please note that all CT scans at this facility use dose modulation, iterative reconstruction, and/or weight-based dosing when appropriate to reduce radiation dose to as low as reasonably achievable. Dictated by Frankie Maxwell MD @ 09/17/2025 8:22:28 PM Signed by:?Frankie Maxwell MD @09/17/2025 8:22:28 PM (Electronic Signature)
--- NOTE | 2025-09-17 10:33 | CT_ITS ---
Patient: LAURYN MICHAEL Facility:?[facility] Patient ID:?[id number] Site Patient ID:?[id number]. Site :?[id number] Study:?CT-Head Angio W/ 95CC ISOVUE 370-09/17/2025 10:51:52 AM Ordering Physician:Vick Maldonado Final Report: DATE: 09/17/2025 CLINICAL HISTORY: Patient with lightheadedness. TECHNIQUE: Standard helical CT image acquisition through the head and neck was performed after intravenous contrast bolus enhancement. 2D and 3D MIP images for post- processing were performed and interpreted on an independent workstation and 3D images were permanently archived. COMPARISON: CT same day. FINDINGS: The origins of the great vessels from the aortic arch are patent. The origin of the right vertebral artery is patent. The origin of the left vertebral artery is patent. The common carotid arteries are patent There is plaque without stenosis at the origin of the right internal carotid artery. There is without stenosis at the origin of the left internal carotid artery. The rest of the cervical segments of the internal carotid arteries are patent up to their intracranial segments. The intracranial segments of the internal carotid arteries are patent. The vertebral arteries are codominant. The cervical segments of the vertebral arteries are patent. The intracranial segments of the vertebral arteries are patent. The middle cerebral arteries are normal without aneurysm or proximal occlusion identified. The anterior cerebral arteries are normal without aneurysm or proximal occlusion identified. The anterior communicating artery is well visualized and appears normal. The basilar artery is normal without aneurysm or occlusion. The posterior cerebral arteries are normal without aneurysm or proximal occlusion. There is normal opacification of major intracranial venous structures. The visualized lung apices are unremarkable The thyroid gland is unremarkable. The soft tissues of the neck are unremarkable. There are degenerative changes in the cervical spine. IMPRESSION: Patent cervical and proximal intracranial vasculature. Please note that all CT scans at this facility use dose modulation, iterative reconstruction, and/or weight-based dosing when appropriate to reduce radiation dose to as low as reasonably achievable. Dictated by Frankie Maxwell MD @ 09/17/2025 8:22:01 PM Signed by:?Frankie Maxwell MD @09/17/2025 8:22:01 PM (Electronic Signature)
[2025-09-17 10:40] LABS: Hematocrit* 41.0 % (33.0-51.0); Hemoglobin* 13.8 gm/dL (12.0-16.0); Immature Granulocytes Abs Auto 0.02 K/uL (0.00-0.30); Immature Granulocytes Pct Auto 0.3 %; Mean Corpuscular HGB Conc 34 gm/dL (32-36); Mean Corpuscular Hemoglobin 30 pg (26-34); Mean Corpuscular Volume 90 fL (80-100); RDW Coefficient of Variation % 13.1 % (11.5-15.5); Red Blood Count* 4.54 m/uL (4.00-5.20); White Blood Count* 7.12 K/uL (4.50-11.00)
[2025-09-17 10:41] LABS: Lactate* 1.2 mmol/L (0.5-1.9)
[2025-09-17 10:42] LABS: Lymphocytes Absolute Auto 1.00 K/uL (0.90-2.90); Slide Review Reflex No
[2025-09-17 10:54] LABS: Albumin* 4.3 g/dL (3.3-5.0); Chloride* 95 mmol/L (96-114); Potassium* 4.4 mmol/L (3.6-5.1); Sodium* 133 mmol/L (135-149)
[2025-09-17 10:56] LABS: Blood Urea Nitrogen* 11 mg/dL (7-30); Creatinine* 0.6 mg/dL (0.5-1.5); Estimated Glomerular Filt Rate 94 ml/min; INR 0.97 (0.91-1.10); Prothrombin Time 13.7 Seconds; Troponin, Point-of-Care* 0.01 ng/ml (0.01-0.04)
[2025-09-17 10:57] LABS: Alanine Aminotransferase* 17 U/L (4-35); Alkaline Phosphatase* 76 U/L (40-150); Anion Gap 9 mEq/L (7-15); Aspartate Amino Transferase* 25 U/L (12-35); Bilirubin Direct* 0.1 mg/dL (0.0-0.5); Bilirubin Total* 0.7 mg/dL (0.1-1.5); Calcium* 9.3 mg/dL (8.4-10.6); Carbon Dioxide* 29 mmol/L (20-32); Glucose* 124 mg/dL (60-115); Total Protein* 7.4 g/dL (6.0-8.3)
[2025-09-17 11:00] VITALS: BP 124/78; PULSE 81; RESP 14; O2SAT 98
[2025-09-17 11:15] LABS: Ethanol* < 0.01 % (0.01-0.03); NT Pro B Type NatriureticPept* 55 pg/mL (See Note)
[2025-09-17 11:17] LABS: PCR FLU A Negative PCR FLU A (Negative); PCR FLU B Negative PCR FLU B (Negative); PCR RSV Negative PCR RSV (Negative); SARS PCR* Negative SARS-CoV-2 (Negative)
== END 2025-09-17 11:50 | disposition home or self-care (01) ==
LOC: ED 10:39
PROVIDERS: Emergency Provider Family Medicine; PCP Family Medicine
DX: R42 Dizziness and giddiness (principal); I45.10 Unspecified right bundle-branch block; Z79.899 Other long term (current) drug therapy
CPT/HCPCS: 36415; 70450; 70496; 70498; 80048; 80076; 81001; 82077; 83605; 83880; 84484; 85025; 85610; 86140; 87086; 87631; 93005; 93246; 94761; 96360; 99284; 99285; J7030; Q9967